=== PATIENT | male | born 1960 | race Caucasian/White ===

== ENCOUNTER 2022-07-30 19:01 | Emergency (ER) | payer OTHER | END 2022-07-30 22:40 | disposition home or self-care (01) | LOC: JD.ED 19:01 | DX: S80.12XA Contusion of left lower leg, initial encounter (principal); M71.22 Synovial cyst of popliteal space [Baker], left knee; Z88.1 Allergy status to other antibiotic agents; W22.8XXA Striking against or struck by other objects, initial encounter | CPT/HCPCS: 73590-26-LT; 73590-LT; 93971-26-LT; 93971-LT; 99283; 99284 ==

== ENCOUNTER 2023-09-28 07:00 | Day surgery (SDC) | payer MEDICARE, OTHER ==
[~2023-09-28 07:00] MED LIST: Acetaminophen 325 MG Tab PO ONE; Morphine 8 MG, EPINEPHrine 0.3 MG, Cefuroxime 750 MG, Ketorolac 30 MG, Sodium Chloride ... PRN; Pregabalin 25 MG Cap PO ONE; oxyCODONE ER 10 MG TAB.ER PO ONE
[2023-09-28] MEDS ORDERED: Naloxone 0.4 MG/ML SDV IVPUSH PRN (07:14)
[2023-09-28] MEDS ORDERED: HYDROmorphone 0.5 MG/0.5 ML Syringe IVPUSH PRN (07:14)
[2023-09-28] MEDS ORDERED: fentaNYL 100 MCG/2 ML SDV IVPUSH PRN (07:14)
[2023-09-28] MEDS ORDERED: Ondansetron 4 MG/2 ML SDV IVPUSH PRN (07:14)
[2023-09-28] MEDS ORDERED: Ondansetron 4 MG/2 ML SDV ONE (07:20)
[2023-09-28] MEDS ORDERED: fentaNYL 100 MCG/2 ML SDV ONE (07:21)
[2023-09-28] MEDS ORDERED: Midazolam 1 MG/ML 2 ML SDV ONE (07:21)
[2023-09-28] MEDS ORDERED: ceFAZolin 2 GM Vial ONE (07:21)
[2023-09-28] MEDS ORDERED: Propofol 200 MG/20 ML SDV ONE ×3 (07:22→09:08)
[2023-09-28] MEDS ORDERED: Ketamine 200 MG/20 ML MDV ONE (07:22)
[2023-09-28] MEDS ORDERED: Bupivacaine 0.25% 10 ML SDV ONE (07:37)
[2023-09-28] MEDS ORDERED: Triamcinolone Acetonide 40 MG/ML 1 ML SDV ONE (07:37)
[2023-09-28] MEDS ORDERED: Tranexamic Acid 1,000 MG/10 ML Vial ONE (07:37)
[2023-09-28] MEDS ORDERED: Vancomycin 1 GM SDV ONE (07:43)
[2023-09-28] MEDS ORDERED: ePHEDrine 50 MG/ML SDV ONE (08:52)
[2023-09-28] MEDS ORDERED: Ropivacaine 0.5% 5 MG/ML 30 ML SDV ONE (10:01)
[2023-09-28] MEDS ORDERED: oxyCODONE 5 MG Tab PO ONE (10:31)
== END 2023-09-28 13:20 | disposition home or self-care (01) ==
LOC: JD.SDS 07:00
PROVIDERS: ATTEND Orthopaedic Surgery
DX: M17.0 Bilateral primary osteoarthritis of knee (principal); I10 Essential (primary) hypertension; F17.220 Nicotine dependence, chewing tobacco, uncomplicated; Z86.16 Personal history of COVID-19; Z79.82 Long term (current) use of aspirin; Z79.899 Other long term (current) drug therapy
CPT/HCPCS: 0055T; 27447; 73560; 97116; 97161; A9270; C1713; C1776; J0171; J0690; J0697; J1885; J2250; J2270; J2405; J2704; J2795; J3010; J3301; J3370; J3490; J7030; 01402; 64447

== ENCOUNTER 2024-04-22 06:00 | Day surgery (SDC) | payer MEDICARE, OTHER ==
[~2024-04-22 06:00] MED LIST changes: -Acetaminophen 325 MG Tab PO ONE; -Morphine 8 MG, EPINEPHrine 0.3 MG, Cefuroxime 750 MG, Ketorolac 30 MG, Sodium Chloride ... PRN; -Pregabalin 25 MG Cap PO ONE; +Sodium Chloride 0.9% 10 ML Syringe FLUSH PRN; +Sodium Chloride 0.9% 10 ML Syringe FLUSH SCH; -oxyCODONE ER 10 MG TAB.ER PO ONE
[2024-04-22] MEDS ORDERED: Pregabalin 75 MG Cap PO SCH (06:02)
[2024-04-22] MEDS: Lactated Ringers 1,000 ML IV SCH (06:15)
[2024-04-22] MEDS ORDERED: Lactated Ringers 1,000 ML ONE ×2 (06:30→08:21)
[2024-04-22] MEDS ORDERED: Midazolam 1 MG/ML 2 ML SDV ONE (06:30)
[2024-04-22] MEDS ORDERED: fentaNYL 100 MCG/2 ML SDV ONE (06:30)
[2024-04-22] MEDS ORDERED: Ketorolac 30 MG/ML SDV ONE (06:30)
[2024-04-22] MEDS ORDERED: Propofol 200 MG/20 ML SDV ONE ×2 (06:30→07:39)
[2024-04-22] MEDS ORDERED: Ondansetron 4 MG/2 ML SDV ONE (06:30)
[2024-04-22] MEDS: Acetaminophen 325 MG Tab PO SCH (06:31)
[2024-04-22] MEDS: oxyCODONE ER 10 MG TAB.ER PO SCH (06:31)
[2024-04-22] MEDS ORDERED: Ropivacaine 0.5% 5 MG/ML 30 ML SDV ONE (06:37)
[2024-04-22] MEDS ORDERED: EPINEPHrine 1 MG/ML SDV ONE (06:37)
[2024-04-22] MEDS ORDERED: dexmedeTOMIDine HCl 200 MCG/2 ML SDV ONE (06:37)
[2024-04-22] MEDS: Pregabalin 25 MG Cap PO ONE (06:53)
[2024-04-22] MEDS ORDERED: ceFAZolin 2 GM Vial ONE (07:05)
[2024-04-22] MEDS ORDERED: HYDROmorphone 0.5 MG/0.5 ML Syringe IVPUSH PRN (07:19)
[2024-04-22] MEDS ORDERED: fentaNYL 100 MCG/2 ML SDV IVPUSH PRN (07:19)
[2024-04-22] MEDS ORDERED: Ondansetron 4 MG/2 ML SDV IVPUSH PRN (07:19)
[2024-04-22] MEDS: Morphine 8 MG, EPINEPHrine 0.3 MG, Cefuroxime 750 MG, Ketorolac 30 MG, Sodium Chloride ... PRN (08:13)
[2024-04-22] MEDS: Vancomycin 1 GM SDV ONE (08:19)
[2024-04-22] MEDS: Tranexamic Acid 1,000 MG/10 ML Vial ONE (08:19)
[2024-04-22] MEDS: oxyCODONE 5 MG Tab PO ONE (12:48)
== END 2024-04-22 13:05 | disposition home or self-care (01) ==
LOC: JD.SDS 06:00
PROVIDERS: ATTEND Orthopaedic Surgery
DX: M17.11 Unilateral primary osteoarthritis, right knee (principal); I10 Essential (primary) hypertension; F17.220 Nicotine dependence, chewing tobacco, uncomplicated; Z79.899 Other long term (current) drug therapy
CPT/HCPCS: 0055T; 27447; 64447; 73560; 97110; 97161; A9270; C1713; C1776; J0171; J0690; J0697; J1885; J2250; J2270; J2405; J2704; J2795; J3010; J3370; J7120; 01402; J3490